=== PATIENT | male | born 1950 | race Caucasian/White ===

== ENCOUNTER 2024-01-11 03:36 | Inpatient (IN) | payer MEDICARE ==
[~2024-01-11] VITALS: Ht 180.3 cm; Wt 92.8 kg
[2024-01-11 04:01] LABS: Basophils # (auto) 0.1 10 ^3/uL (0-0.2); Basophils % (auto) 1.2 % (0.0-2.0); Eosinophils # (auto) 0.1 10 ^3/uL (0-0.8); Eosinophils % (auto) 0.7 % (0.0-7.0); Hemoglobin 16.3 g/dL (13.5-17.5); Lymphocytes % (auto) 21.4 % (10.0-50.0); Mean Corpuscular Hemoglobin 32.8 pg (28.0-32.0); Mean Corpuscular Hgb Conc. 34.8 g/dL (32.0-36.0); Mean Corpuscular Volume 94.2 fL (80.0-100.0); Monocytes % (auto) 10.7 % (0.0-12.0); Neutrophils # (auto) 6.1 10 ^3/uL (1.6-8.6); Red Blood Cells 4.98 10^6/uL (4.5-5.90); Red Cell Distribution Width 13.2 % (11.8-14.3); White Blood Cell 9.2 10^3/uL (4.4-10.8)
[2024-01-11] MEDS: cefTRIAXone 1GM/50ML D5W 50 ML IV ONE ×2 (04:07→04:16)
[2024-01-11] MEDS: LABETALOL HCL 5 MG/ML 4ML SYRINGE IV ONE ×7 (04:08→14:45)
[2024-01-11 04:15] VITALS: PULSE 108; RESP 13; O2SAT 97
[2024-01-11 04:17] LABS: Alanine Aminotransferase 33 U/L (7-40); Albumin 4.7 g/dL (3.2-4.8); Alkaline Phosphatase 69 U/L (46-116); Anion Gap 14 (5-15); Aspartate Aminotransferase 22 U/L (13-40); BUN/Creatinine Ratio 11.7 (10.0-20.0); Blood Urea Nitrogen 11 mg/dL (9-23); Calcium 10.1 mg/dL (8.5-10.1); Carbon Dioxide 20 mmol/L (20-30); Chloride 101 mmol/L (98-107); Glucose 292 mg/dL (74-106); Potassium 4.4 mmol/L (3.5-5.1); Sodium 135 mmol/L (136-145)
[2024-01-11 04:18] LABS: Total Protein 7.1 g/dL (5.7-8.2)
[2024-01-11 04:20] LABS: Lactic Acid w/Reflex 4.9 mmol/L (0.4-2.0)
[2024-01-11] MEDS: SODIUM CHLORIDE 0.9% 2,800 ML IV ONE (04:42)
[2024-01-11 06:24] LABS: Urine Bacteria None Seen /hpf (None Seen)
[2024-01-11 06:48] LABS: Urine Blood Negative /uL (Negative); Urine Clarity Clear (Clear); Urine Color Light-Yellow (Yellow); Urine Hyaline Cast FEW /lpf (0 - 2); Urine Mucus FEW (None Seen); Urine Protein, UAD 1+ (Negative); Urine Urobilinogen Normal (Negative); Urine WBC 1 /hpf (0 - 3); Urine pH 5.5 (5.0-9.0)
[2024-01-11 06:56] LABS: Amphetamine Screen, Urine Neg (NEGATIVE)
[2024-01-11 06:58] LABS: Barbiturate Scree,Urine Neg (NEGATIVE); Benzodiazephine Screen, Urine Neg (NEGATIVE); Cannabinoid Screen, Urine Neg (NEGATIVE); Cocaine Screen, Urine Neg (NEGATIVE); Opiate Scree,Urine Neg (NEGATIVE); Phencyclidine Screen, Urine Neg (NEGATIVE)
[2024-01-11] MEDS: hydrALAZINE HCL 20 MG/ML VL IV ONE ×2 (10:15→11:49)
[2024-01-11] MEDS: hydrALAZINE HCL 20 MG/ML VL ONE ×3 (10:27→22:13)
[2024-01-11 11:13] LABS: Rapid Strep A Screen-Throat Negative
[2024-01-11 11:34] LABS: Rapid Influenza A Negative (Negative); Rapid Influenza B Negative (Negative)
[2024-01-11 11:36] LABS: COVID19 ANTIGEN SOFIA FIA NEGATIVE (NEGATIVE)
[2024-01-11] MEDS ORDERED: MORPHINE SULFATE INJ 2 MG/ml SYRG IV PRN (15:45)
[2024-01-11] MEDS ORDERED: HYDROcodone-ACET 5/325MG TAB PO PRN (15:45)
[2024-01-11] MEDS ORDERED: DEXTROSE (50%) 50ML SYRG IV PRN (15:45)
[2024-01-11] MEDS: SODIUM CHLORIDE 0.9% 1,000 ML IV SCH (15:45)
[2024-01-11] MEDS ORDERED: NITROGLYCERIN 0.4 MG SL TAB SL PRN (15:45)
[2024-01-11 16:43] LABS: Triglycerides 317 mg/dL (< 150)
[2024-01-11 16:44] LABS: LDL Cholesterol 46 mg/dL (< 100)
[2024-01-11 16:45] LABS: Cholesterol 114 mg/dL (< 200); HDL Cholesterol 34 mg/dL (40-59)
[2024-01-11] MEDS: InsuLIN REG 1unit/0.01ml Soln (100units/ml) SC SCH (17:08)
[2024-01-11] MEDS: InsuLIN REG 1unit/0.01ml Soln (100units/ml) ONE ×2 (17:10→22:12)
[2024-01-11] MEDS: ACCU-CHEK COMFORT CURVE STRIP VI SCH (17:12)
[2024-01-11 19:30] VITALS: PULSE 117; RESP 21; O2SAT 95
[2024-01-11 21:08] VITALS: BP 170/98; PULSE 121; RESP 18; TEMP 98.1; O2SAT 97
[2024-01-11] MEDS ORDERED: AMLO1TAB22 PO (21:15)
[2024-01-11] MEDS ORDERED: METF-370 PO (21:15)
[2024-01-11] MEDS ORDERED: LISI40TA16 PO (21:15)
[2024-01-11] MEDS ORDERED: METO25TA5 PO (21:15)
[2024-01-11] MEDS ORDERED: PRAV20TA3 PO (21:15)
[2024-01-11] MEDS: TEMAZEPAM 15 MG CAP ONE (22:14)
[2024-01-11] MEDS: hydrALAZINE HCL 20 MG/ML VL IV PRN (22:23)
[2024-01-11] MEDS: TEMAZEPAM 15 MG CAP PO ONE (22:36)
[2024-01-11 23:30] VITALS: BP 157/96; PULSE 110; RESP 18
[2024-01-12] VITALS (9 sets, daily range): BP systolic 151–191; BP diastolic 80–101; PULSE 94–132; RESP 16–71; TEMP 97.9–98.7; O2SAT 93–97
[2024-01-12] MEDS: dilTIAZem 25 MG/5 ML VIAL IV ONE ×2 (01:08→01:13)
[2024-01-12] MEDS: hydrALAZINE HCL 20 MG/ML VL ONE (04:14)
[2024-01-12] MEDS: InsuLIN REG 1unit/0.01ml Soln (100units/ml) ONE (06:16)
[2024-01-12 06:50] LABS: Alanine Aminotransferase 25 U/L (7-40); Alkaline Phosphatase 53 U/L (46-116); Anion Gap 11 (5-15); Aspartate Aminotransferase 17 U/L (13-40); BUN/Creatinine Ratio 9.8 (10.0-20.0); Blood Urea Nitrogen 9 mg/dL (9-23); Calcium 9.2 mg/dL (8.5-10.1); Carbon Dioxide 22 mmol/L (20-30); Chloride 105 mmol/L (98-107); Glucose 255 mg/dL (74-106); Potassium 3.7 mmol/L (3.5-5.1); Sodium 138 mmol/L (136-145); Total Protein 5.8 g/dL (5.7-8.2)
[2024-01-12 07:09] LABS: Basophils # (auto) 0.1 10 ^3/uL (0-0.2); Basophils % (auto) 0.7 % (0.0-2.0); Eosinophils # (auto) 0 10 ^3/uL (0-0.8); Eosinophils % (auto) 0.5 % (0.0-7.0); Hematocrit 40.5 % (41.0-53.0); Hemoglobin 14.1 g/dL (13.5-17.5); Lymphocytes % (auto) 11.5 % (10.0-50.0); Mean Corpuscular Hemoglobin 32.9 pg (28.0-32.0); Mean Corpuscular Hgb Conc. 34.8 g/dL (32.0-36.0); Mean Corpuscular Volume 94.5 fL (80.0-100.0); Monocytes # (auto) 0.8 10 ^3/uL (0-1.3); Monocytes % (auto) 9.5 % (0.0-12.0); Neutrophils # (auto) 6.5 10 ^3/uL (1.6-8.6); Neutrophils % (auto) 77.8 % (37.0-80.0); Nucleated Red Blood Cells % 0.1 %; Red Blood Cells 4.29 10^6/uL (4.5-5.90); Red Cell Distribution Width 13.3 % (11.8-14.3); White Blood Cell 8.4 10^3/uL (4.4-10.8)
[2024-01-12] MEDS: cefTRIAXone 1GM/50ML D5W 50 ML IV SCH (09:19)
[2024-01-12] MEDS: ENOXAPARIN SOD 40 MG/0.4 ML SYRINGE SC SCH (09:19)
[2024-01-12] MEDS: ACETAMINOPHEN 325 MG TAB PO PRN (09:24)
[2024-01-12] MEDS ORDERED: MET50T PO (09:30)
[2024-01-12] MEDS: METOPROLOL TARTRATE 50 MG TAB PO ONE (12:25)
[2024-01-12] MEDS: METOPROLOL TARTRATE 1MG/1ML-5ML VIAL IV ONE (13:30)
[2024-01-12] MEDS ORDERED: PAR20T PO (14:46)
[2024-01-12] MEDS: CYANOCOBALAMIN 500 MCG TAB PO ONE (17:22)
[2024-01-12] MEDS: ASPirin 81 mg TAB PO ONE (17:22)
[2024-01-12] MEDS: LISINOPRIL 5 MG TAB PO ONE (17:23)
[2024-01-12] MEDS: PARoxetine 20 MG TAB PO SCH (17:23)
[2024-01-12] MEDS: traZODone HCL 50 MG TAB PO SCH (22:12)
[2024-01-12] MEDS: METOPROLOL TARTRATE 50 MG TAB PO SCH (22:13)
[2024-01-13 01:00] VITALS: BP 183/96; PULSE 76; RESP 18; TEMP 98.2; O2SAT 98
[2024-01-13] MEDS: hydrALAZINE HCL 20 MG/ML VL IV ONE (01:21)
[2024-01-13] MEDS: cloNIDine HCL 0.1 MG TAB PO ONE (02:34)
[2024-01-13 04:39] VITALS: BP 101/58; PULSE 77; RESP 16; TEMP 98.2; O2SAT 98
[2024-01-13 07:23] LABS: Chloride 105 mmol/L (98-107); Potassium 4.2 mmol/L (3.5-5.1); Sodium 137 mmol/L (136-145)
[2024-01-13 07:24] LABS: Anion Gap 7 (5-15); Carbon Dioxide 25 mmol/L (20-30)
[2024-01-13 07:25] LABS: Calcium 9.2 mg/dL (8.7-10.4)
[2024-01-13 07:29] LABS: Glucose 214 mg/dL (74-106)
[2024-01-13 07:30] LABS: BUN/Creatinine Ratio 11.9 (10.0-20.0); Blood Urea Nitrogen 12 mg/dL (9-23); Magnesium 1.9 mg/dL (1.6-2.6)
[2024-01-13 08:00] VITALS: BP 155/82; PULSE 82; PULSE 83; RESP 18; TEMP 98.5; O2SAT 98
[2024-01-13] MEDS: ASPirin 81 mg TAB PO SCH (09:15)
[2024-01-13] MEDS: LISINOPRIL 5 MG TAB PO SCH (09:16)
[2024-01-13] MEDS: CYANOCOBALAMIN 500 MCG TAB PO SCH (09:17)
[2024-01-13] MEDS ORDERED: MET50T PO (11:49)
[2024-01-13] MEDS ORDERED: ASPI-325 PO (11:49)
[2024-01-13] MEDS ORDERED: LISI-275 PO (11:49)
[2024-01-13] MEDS ORDERED: CYAN500T3 PO (11:49)
[2024-01-13] MEDS ORDERED: PARoxetine 20 MG TAB PO SCH (15:00)
== END 2024-01-13 13:13 | disposition home or self-care (01) | DRG 305 ==
LOC: ER 03:36 → TELE 15:36 → TELE-WESTW 20:52
PROVIDERS: ADMIT Nurse Practitioner Family; ATTEND Internal Medicine
DX: I16.0 Hypertensive urgency (principal); E11.65 Type 2 diabetes mellitus with hyperglycemia; I10 Essential (primary) hypertension; Z20.822 Contact with and (suspected) exposure to COVID-19; I48.91 Unspecified atrial fibrillation; I08.0 Rheumatic disorders of both mitral and aortic valves; E78.5 Hyperlipidemia, unspecified; Z85.46 Personal history of malignant neoplasm of prostate; Z86.73 Personal history of transient ischemic attack (TIA), and cerebral infarction without residual deficits; Z79.4 Long term (current) use of insulin
CPT/HCPCS: 36415; 70450; 71045; 71275; 80048; 80053; 80061; 80307; 81001; 82607; 82962; 83036; 83605; 83735; 83880; 84443; 84484; 85025; 87040; 87070; 87426; 87804; 87880; 93005; 93306; 96365; 96375; 96376; 97163; G0378; J1815; J3490